=== PATIENT | female | born 1970 | race Caucasian/White ===

== ENCOUNTER 2017-09-21 09:54 | Inpatient (IN) ==
--- NOTE | 2017-09-20 08:50 | Discharge Summary ---
<LiviaCarol Maria Guadalupe - Last Filed: 09/20/17 08:47> Date of Encounter: 09/20/17 - Discharge Diagnosis (1) Status post total right knee replacement Priority: Primary Status: Acute (2) Arthritis of right knee Priority: Primary Status: Chronic (3) GERD (gastroesophageal reflux disease) Priority: Secondary Status: Chronic Qualifiers: Esophagitis presence: esophagitis presence not specified Qualified Code(s) : K21.9 - Gastro-esophageal reflux disease without esophagitis (4) Obesity Priority: Secondary Status: Chronic Qualifiers: Obesity type: unspecified obesity type Obesity classification: unspecified obesity classification Serious obesity comorbidity presence: unspecified whether serious comorbidity present Qualified Code(s): E66.9 - Obesity, unspecified - Hospital Course Hospital course: Ms. Salazar is a 47 year old female - Time Spent with Patient Total time spent providing and/or coordinating discharge services: - Discharge Medications Home Medications: Omeprazole 20 mg PO DAILY 08/20/16 [History] Aspirin Enteric Coated [Aspirin EC] 325 mg PO BID 10 Days #20 tablet. [Rx] Ondansetron HCl [Zofran] 4 mg PO Q8HR PRN 10 Days #30 tab 09/20/17 [Rx] OxyCODONE Immed Rel [Roxicodone 5 MG] 5 mg PO Q6HR PRN 7 Days #28 tablet [Rx] HYDROcodone/Acet 5/325 mg [[place] 5-325 mg] 1 tab PO TID PRN 09/21/17 [History] PredniSONE [Deltasone] See Taper PO TAPER 09/21/17 [History] Allergies/Adverse Reactions: 3 Allergy/AdvReac Type Severity Reaction Status Date / Time amitriptyline Allergy Vomiting Verified 09/21/17 10:18 sumatriptan [From Imitrex] Allergy Dizziness Verified 09/21/17 10:18 tramadol Allergy Dizziness Verified 09/21/17 10:18 aspirin [ASA] AdvReac Vomiting Verified 09/21/17 10:18 codeine AdvReac Vomiting Verified 09/21/17 10:18 Primary care physician: Carlos Soria MD - Patient Status Disposition: Home, Self-Care Condition: Good - Discharge Instructions Follow Up With: Carlos Soria MD [Primary Care Provider] - <Miller Alvarez - Last Filed: 09/22/17 06:24> Orders not resulted at time of discharge: Pending orders 09/21/17 01:00 XR knee RT limited 1-2V [XR] Routine Hemoglobin and Hematocrit [HEME] Routine 09/21/17 10:55 US anesthesia pain block [US] Routine Date of Encounter: 09/22/17 Time of Encounter: 06:23 - Discharge Diagnosis (1) Obesity (BMI 35.0-39.9 without comorbidity) Priority: Secondary Status: Chronic (2) Status post total right knee replacement Priority: Primary Status: Acute (3) Arthritis of right knee Priority: Primary Status: Chronic (4) GERD (gastroesophageal reflux disease) Priority: Secondary Status: Chronic Qualifiers: Esophagitis presence: esophagitis presence not specified Qualified Code(s) : K21.9 - Gastro-esophageal reflux disease without esophagitis - Hospital Course Hospital course: Ms. Salazar is a 47 year old female Status post right total knee replacement The patient had an uneventful postoperative course. They received antibiotics and physical therapy and were discharged in stable condition. There will follow -up in the office in 2 weeks. - Time Spent with Patient Total time spent providing and/or coordinating discharge services: Primary care physician: Carlos Soria MD - Patient Status Functional capacity at discharge: uses cane/walker Overall status at discharge: patient is progressing back to baseline
[2017-09-21] MEDS ORDERED: CeFAZolin Syr 3,000MG/30 ML 3,000 MG/30 ML SYRINGE IVPB ONE (10:16)
[2017-09-21] MEDS: Ringers Solution, Lactated 1,000 ML IVC SCH ×2 (10:44→15:23)
[2017-09-21] MEDS ORDERED: Famotidine 20 MG/2 ML VIAL IVP ONE (10:55)
[2017-09-21] MEDS ORDERED: Gabapentin 300 MG CAPSULE PO ONE (10:55)
--- NOTE | 2017-09-21 10:59 | Anesthesia Evaluation PreOp ---
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 [Rx] Ondansetron HCl [Zofran] 4 mg PO Q8HR PRN 10 Days #30 tab 09/20/17 [Rx] OxyCODONE Immed Rel [Roxicodone 5 MG] 5 mg PO Q6HR PRN 7 Days #28 tablet [Rx] HYDROcodone/Acet 5/325 mg [[place] 5-325 mg] 1 tab PO TID PRN 09/21/17 [History] PredniSONE [Deltasone] See Taper PO TAPER 09/21/17 [History] 3 Allergy/AdvReac Type Severity Reaction Status Date / Time amitriptyline Allergy Vomiting Verified 09/21/17 10:18 sumatriptan [From Imitrex] Allergy Dizziness Verified 09/21/17 10:18 tramadol Allergy Dizziness Verified 09/21/17 10:18 aspirin [ASA] AdvReac Vomiting Verified 09/21/17 10:18 codeine AdvReac Vomiting Verified 09/21/17 10:18 - Meds/Allergy Pre-op Review Medications Reviewed: Yes Allergies Reviewed: Yes Beta Blockers on Current Med List: No Anesthesia Results - Labs Laboratory Tests 08/20/16 08/26/17 08/26/17 13:17 10:18 10:18 Hgb 13.5 POC Hgb 13.0 Plt Count 195 Sodium 138 Potassium 3.6 BUN 19 Creatinine 0.65 - Imaging EKG: report reviewed (SR) Anesthesia Exam O2 Sat Height 1.75 m Height 1.75 m Weight 121.109 kg Weight 121.109 kg O2 Sat by Pulse Oximetry 98 Vital Signs Temp Pulse Resp BP Pulse Ox 97.7 F 63 18 127/73 98 09/21/17 10:15 09/21/17 10:15 09/21/17 10:15 09/21/17 10:15 09/21/17 10:15 Height: 5'9 Weight: 267 lbs NPO (# of Hours): MN Pain Scale: 0 - HEENT Pupil (Motor): Pupils equal, EOMI Mallampati: II Teeth: Normal Oral Opening: Greater than 3 - FORMULATION CHEMIST LOC: Oriented FORMULATION CHEMIST Motor: Normal RUE, Normal LUE, Normal RLE, Normal LLE, Normal Face FORMULATION CHEMIST Sensory: Normal: RUE, LUE, RLE, LLE, Face - Cardiac Rhythm: Regular Murmur: None JVD: No Carotid Bruit: No - Pulmonary Breath Sounds: bilateral Clear Respiratory Effort: Symmetrical Anesthesia Assess/Plan ASA Score: 2 Modified Jay Scale for Level of Consciousness: Cooperative, oriented, and tranquil Anesthetic Plan: Regional, MAC Monitoring Plan: Standard Monitors Recovery Plan: PACU (Discussed SAB with MAC, possible GA, agrees to proceed)
[2017-09-21] MEDS ORDERED: *HR* HYDROmorphone (PF) 1 MG/ML SYRINGE IVP PRN (11:49)
[2017-09-21] MEDS ORDERED: *HR* Promethazine 25 MG/ML VIAL IVP PRN (11:49)
[2017-09-21] MEDS ORDERED: Lidocaine -MPF 4% 5 ML AMPUL ONE (12:05)
[2017-09-21] MEDS ORDERED: *HR* Succinylcholine 200 MG/10 ML VIAL IVP ONE (12:05)
[2017-09-21] MEDS ORDERED: *HR* FentaNYL (PF) 100 MCG/2 ML VIAL ONE (12:05)
[2017-09-21] MEDS ORDERED: Lidocaine -MPF 2% 2 ML VIAL ONE (12:05)
[2017-09-21] MEDS ORDERED: Ondansetron 4 MG/2 ML VIAL ONE (12:05)
[2017-09-21] MEDS ORDERED: Dexamethasone 4 MG/ML VIAL ONE (12:05)
[2017-09-21] MEDS ORDERED: *HR* Midazolam HCl 2 MG/2 ML VIAL ONE (12:06)
[2017-09-21] MEDS ORDERED: *HR* Propofol 200 MG/20 ML VIAL IVP ONE (12:06)
--- NOTE | 2017-09-21 12:36 | History & Physical Report ---
Date of Encounter: 09/21/17 Time of Encounter: 12:36 24 Hour HP Update - Instructions Instructions: If the History and Physical is less than 30 days old and was completed prior to A.M. admission and or procedure and has NOT been updated on calendar day of procedure please complete this update prior to performing procedure. - Update Patient reports changes in Medical Condition: No Changes in examination, assessment, or condition: No Changes in Medication: No Preop tests/diagnostics Reviewed: Yes Surgery Remains Indicated: Yes Consent for Planned Operative Procedure(s) Verified: Yes - Pre-Operative Checklist Preoperative Checklist Indicated: No Prophylactic Antibiotic Ordered: Yes Is VTE Prophylaxis Indicated?: Yes
[2017-09-21] MEDS ORDERED: ROPIVACAINE HCL/PF 0.5% 30 ML VIAL ONE (12:45)
[2017-09-21] MEDS ORDERED: Ethanol\\Acetic Acid\\Na Ace\\Ben 1,000 ML IRRIG.SOLN IR ONE (13:11)
--- NOTE | 2017-09-21 13:37 | Anesthesia Procedures ---
Date of Encounter: 09/21/17 Time of Encounter: 13:00 Procedures: Anesthesia - Epidural/Spinal Patient ID/Chart reviewed: Yes Patient examined: Yes Supplemental Oxygen: Nasal Cannula Supplemental Oxygen Rate (L/min): 2 Sedation: Versed (mg): 2 Sedation: Fentanyl (mcg): 100 Site Prep: Aseptic Technique, Sterile prep and drape, Povidone-Iodine 1% Patient position: upright Local Anesthetic: Lidocaine 1% Amount of Local Anesthetic used: 3 Interspace Used: L4-L5 Blood: No CSF: Yes Paresthesia: No Spinal Needle Gauge: 22 Spinal Dose: 2.5ml Bupivicaine 0.5% isobaric Procedure: Intrathecal dose administered 2nd pass, 1st pass failure with 25G Sprotte, 2nd pass 22G quincke. Sitting position for spinal. VSS throughout Vitals + FHT's: Vital Signs Temperature 97.7 F 09/21/17 10:15 Pulse Rate 63 09/21/17 10:15 Respiratory Rate 18 09/21/17 10:15 Blood Pressure 127/73 09/21/17 10:15 O2 Sat by Pulse Oximetry 98 09/21/17 10:15 Temperature 97.7 F 09/21/17 10:15 Pulse Rate 65 09/21/17 13:27 Respiratory Rate 16 09/21/17 13:27 Blood Pressure 111/67 09/21/17 13:27 O2 Sat by Pulse Oximetry 98 09/21/17 13:27 - Nerve Block Procedure Date: 09/21/17 Time: 13:20 Allergies/Adv Reactions: amitryptyline, sumatriptan, tramadol, Aspirin, Codeine Pre-op Diagnosis: Right knee arthritis Surgical Procedure: Right TKA Checklist: Correct Patient Identifier, Correct procedure, History checked Correct side: Right Blood Thinner: No Monitor Applied: EKG, BP, Pulse Oximetry Supplemental Oxygen via Nasal Cannula (L/min): 2 Indication: Post Op Analgesia Pre-op Neuro Deficits: No Block Type: Other (adductor Canal Right) Catheter placed: No Sterile Technique: Yes Ultrasound used: Yes Anatomy identified: Yes Visual spread of Local: Yes Neuro Stimulation: No Blood on Needle Aspiration: No Smooth Injection of Local: Yes Pain with Injection of Local: No Prep: Chlorhexadine Needle: 21 x 100 mm Stimuplex Local: Ropivacaine, Other (Decadron 8mg, Precedex 20mcg) Volume (cc): 37ml Number of Attempts: 1 Complications: None/effective block Vitals: Vital Signs Temperature 97.7 F 09/21/17 10:15 Pulse Rate 63 09/21/17 10:15 Respiratory Rate 18 09/21/17 10:15 Blood Pressure 127/73 09/21/17 10:15 O2 Sat by Pulse Oximetry 98 09/21/17 10:15 Temperature 97.7 F 09/21/17 10:15 Pulse Rate 65 09/21/17 13:27 Respiratory Rate 16 09/21/17 13:27 Blood Pressure 111/67 09/21/17 13:27 O2 Sat by Pulse Oximetry 98 09/21/17 13:27
[2017-09-21] MEDS ORDERED: Propofol 500 MG/50 ML INFUS..BTL ONE ×2 (14:07→14:23)
--- NOTE | 2017-09-21 14:35 | Orthopedic Operative Note ---
Date of procedure: 09/21/17 Pre-op diagnosis: Right knee arthritis Post-op diagnosis: same Procedure: Procedure: Right robotic-assisted Total knee replacement Estimated blood loss: 200 cc Hardware: Metal and polyethylene replacement. [place] Femur: 3 Tibia: 4 TS insert: 13 Patella: 36 Exam Under anesthesia: 6 degrees flexion contracture 5 degree varus as calculated by the robot full flexion and no instability Procedural Notes: A 4 arthritic changes all 3 compartments Operative procedure: The patient was brought to the operating room and placed on the operating room table. After general anesthesia was administered the operative knee was examined. Findings were noted in the exam under anesthesia. The operative extremity was prepped and draped in sterile surgical fashion. The patient received IV antibiotics prior to skin incision. A standard midline incision was made centered over the patella. The incision was made through the skin and subcutaneous tissue. A medial parapatellar tendon approach was performed. Care was taken to preserve tissue along the medial aspect of the patella. And to protect the patella tendon. The deep MCL was released off the medial tibia. The infra patella fat pad was excised. The patella was everted and cut was made at the level of the insertion of the quadriceps and patella tendon. The patella was sized to 36 the guide was seated and the lug holes are drilled. Knee was brought into flexion. Patient noted to have grade 4 arthritic changes all 3 compartments. Steinmann pins were placed in the tibia and the femur for the tibial and femoral arrays respectively. Checkpoints were also placed in the tibia and the femur for calculation purposes. The knee including the femur and the tibial registered. Osteophytes, ACL and PCL were excised at this point. Extension and flexion were assessed with a valgus stress components were adjusted on the computer to balance the knee. Femoral cuts were made first with robotic assistance, these included the anterior cut posterior cuts chamfer cuts. Tibial cut was then performed with robotic assistance as well. Bone fragments were removed, as well as the medial and lateral meniscus. The size 3 femoral guide was seated box cut was made lug holes are drilled. The size 4 tibial tray was seated and prepared with the fin cutter. Trial reduction with the 13 TS Geraldine revealed extension of 0 degree and 3 degree varus full flexion. No varus valgus instability. Trial reduction revealed excellent patella tracking. All trial components were removed all bony surfaces were irrigated. The Tibia was seated followed by the femur, The Geraldine size 13 was seated and secured patella. Patient had similar findings for motion and stability. The knee was closed by the PA. The knee was then irrigated out with 2 L of pulse irrigation. The extensor mechanism was closed with #2 FiberWire suture and #2 PDS suture. The subcutaneous tissue was then irrigated and closed deep with #1 PDS suture superficially with 0 PDS suture and skin was closed with zip tie The patient was then placed in a sterile dressing and a postoperative brace extubated and transferred to recovery room in stable condition. Anesthesia: spinal Surgeon: Miller Alvarez Was there an medical assistant instructor present: No Estimated blood loss (cc): 200 Condition: stable Disposition: PACU
--- NOTE | 2017-09-21 15:32 | Anesthesia Evaluation Post Op ---
Date of Encounter: 09/21/17 Time of Encounter: 15:40 - Vital Signs Vital Signs: Vital Signs/O2 Sat/Glucose, Most Current Temp Pulse Resp BP Pulse Ox 09/21/17 15:23 63 12 92/65 98 09/21/17 15:13 69 12 99/75 95 09/21/17 15:03 97.5 F L 68 12 116/62 100 09/21/17 13:27 65 16 111/67 98 09/21/17 13:24 63 16 108/57 97 09/21/17 13:21 64 16 103/78 98 09/21/17 13:18 69 16 113/64 98 09/21/17 13:15 67 18 129/117 98 09/21/17 13:10 67 18 153/96 96 09/21/17 13:04 66 18 128/78 98 - Lungs Lungs: Clear Ascult./Percussion - Airway Airway: Non-obstructed - Cardiovascular Regular Rate - Mental Status Mental Status: Alert & Oriented, Answers Appropriately - Pain Pain Scale: 0 - Nausea Vomiting Nausea Vomiting: Not Present - Hydration Hydration: Ice chips - Discharge PostOp Status: Transfer Patient to floor
[2017-09-21 15:35] LABS: Hematocrit 35.9 % (35.3-44.9); Hemoglobin 11.7 g/dL (11.5-15.4)
[2017-09-21] MEDS ORDERED: Sennosides 8.6 MG TABLET PO PRN (15:44)
[2017-09-21] MEDS ORDERED: *HR* OxyCODONE Immed Rel 5 MG TABLET PO PRN (15:44)
[2017-09-21] MEDS ORDERED: Naloxone 0.4 MG/ML INJ IVP PRN (15:44)
[2017-09-21] MEDS ORDERED: Temazepam 15 MG CAPSULE PO PRN (15:44)
[2017-09-21] MEDS ORDERED: Ringers Solution, Lactated 1,000 ML IVC SCH (15:44)
[2017-09-21] MEDS ORDERED: MOM Conc 10 ML UD.LIQ PO PRN (15:44)
[2017-09-21] MEDS: *HR* Enoxaparin 30 MG/0.3 ML SYRINGE SQ SCH (17:04)
[2017-09-21] MEDS ORDERED: *HR* Enoxaparin 30 MG/0.3 ML SYRINGE SQ SCH (18:00)
[2017-09-21] MEDS: Ondansetron 4 MG/2 ML VIAL IVP PRN ×2 (18:01→23:53)
[2017-09-21] MEDS: CeFAZolin Syr 3,000MG/30 ML 3,000 MG/30 ML SYRINGE IVPB SCH (20:24)
[2017-09-22 02:12] LABS: Hematocrit 38.3 % (35.3-44.9); Hemoglobin 12.3 g/dL (11.5-15.4)
[2017-09-22 02:26] LABS: BUN/Creatinine Ratio 30 (6-26); Blood Urea Nitrogen 18 mg/dL (6-20); Carbon Dioxide 29 mEq/L (23-29); Chloride 103 mEq/L (98-107); Glucose 146 mg/dL (70-105); Osmolality,Calculated 293 (280-300); Potassium 4.4 mEq/L (3.5-5.1); Sodium 139 mEq/L (136-145); eGFR For African Americans > 60 (> 60); eGFR For Non-African Americans > 60 (> 60)
[2017-09-22] MEDS: CeFAZolin Syr 3,000MG/30 ML 3,000 MG/30 ML SYRINGE IVPB SCH (04:34)
[2017-09-22] MEDS: *HR* Enoxaparin 30 MG/0.3 ML SYRINGE SQ SCH ×2 (04:35→18:29)
--- NOTE | 2017-09-22 06:24 | Orthopedics Progress Note ---
Date of Encounter: 09/22/17 Time of Encounter: 06:24 - Assessment and Plan (1) Obesity (BMI 35.0-39.9 without comorbidity) Current Visit: Yes Status: Chronic (2) Status post total right knee replacement Current Visit: No Status: Acute (3) Arthritis of right knee Current Visit: No Status: Chronic (4) GERD (gastroesophageal reflux disease) Current Visit: No Status: Chronic Qualifiers: Esophagitis presence: esophagitis presence not specified Qualified Code(s) : K21.9 - Gastro-esophageal reflux disease without esophagitis Subjective Interval history: Patient was seen this morning doing well without complaints. Afebrile vital signs stable. Operative extremity: Neurovascularly intact Dressing clean dry and intact Calves nontender Assessment and plan: Continue with postoperative care Hematocrit 38 discharged today Objective Vital signs: Vital Signs Temp Pulse Resp BP Pulse Ox 09/22/17 04:01 97.6 F 58 17 100/67 97 09/22/17 00:16 97.8 F 53 16 136/89 95 09/21/17 18:11 97.2 F L 55 16 105/62 96 09/21/17 17:02 97.0 F L 54 16 105/63 98 09/21/17 16:22 97.0 F L 53 14 98/65 97 09/21/17 15:47 96.7 F L 57 16 106/64 95 09/21/17 15:33 97.8 F 63 14 111/64 93 09/21/17 15:23 63 12 92/65 98 09/21/17 15:13 69 12 99/75 95 09/21/17 15:03 97.5 F L 68 12 116/62 100 09/21/17 13:27 65 16 111/67 98 09/21/17 13:24 63 16 108/57 97 09/21/17 13:21 64 16 103/78 98 09/21/17 13:18 69 16 113/64 98 09/21/17 13:15 67 18 129/117 98 09/21/17 13:10 67 18 153/96 96 09/21/17 13:04 66 18 128/78 98 09/21/17 10:15 97.7 F 63 18 127/73 98 Intake and Output 09/21/17 09/21/17 09/22/17 15:59 23:59 07:59 Intake Total 1000 / 1000 80 / 80 80 / 80 Output Total 200 / 200 150 / 150 500 / 500 Balance 800 / 800 -70 / -70 -420 / -420 Intake: IV Fluids 1000 / 1000 30 / 30 30 / 30 Lactated Ringers 1,000 ML @ 25 1000 / 1000 mls/hr IVC .Q24H VICENTE Rx#: [id number] Ancef Syringe 3,000 MG/30 ML 3, 30 / 30 30 / 30 000 mg In 30 ml @ 200 mls/hr IVPB Q8H VICENTE Rx#:[id number] Oral 50 / 50 50 / 50 Output: Emesis 150 / 150 100 / 100 Estimated Blood Loss 200 / 200 Straight Cath 400 / 400 Other: Weight 121.109 kg Blood Glucose* 219 - Labs CBC & BMP: 09/22/17 01:47 09/22/17 01:47 Labs: Abnormal lab results BUN/Creatinine Ratio 30 (6-26) H 09/22/17 01:47 Glucose 146 mg/dL (70-105) H 09/22/17 01:47 - VTE Documentation of Mechanical Device: Venous foot pump, device Consult Discharge Plan - Plan Referrals: Carlos Soria MD [Primary Care Provider] -
[2017-09-22] MEDS: *HR* OxyCODONE/APAP 5/325 TABLET PO PRN ×3 (09:59→20:04)
[2017-09-23 01:21] LABS: Hematocrit 32.9 % (35.3-44.9); Hemoglobin 10.8 g/dL (11.5-15.4)
[2017-09-23 01:40] LABS: BUN/Creatinine Ratio 25 (6-26); Blood Urea Nitrogen 15 mg/dL (6-20); Calcium 8.7 mg/dL (8.6-10.3); Carbon Dioxide 29 mEq/L (23-29); Chloride 103 mEq/L (98-107); Glucose 115 mg/dL (70-105); Osmolality,Calculated 286 (280-300); Potassium 3.5 mEq/L (3.5-5.1); Sodium 137 mEq/L (136-145); eGFR For African Americans > 60 (> 60); eGFR For Non-African Americans > 60 (> 60)
[2017-09-23] MEDS: *HR* Enoxaparin 30 MG/0.3 ML SYRINGE SQ SCH (04:53)
[2017-09-23] MEDS: *HR* OxyCODONE/APAP 5/325 TABLET PO PRN ×2 (04:53→08:49)
[2017-09-23 06:40] VITALS: BP 121/67
--- NOTE | 2017-09-23 08:57 | Orthopedics Progress Note ---
Date of Encounter: 09/23/17 Time of Encounter: 08:56 - Assessment and Plan (1) Obesity (BMI 35.0-39.9 without comorbidity) Current Visit: Yes Status: Chronic (2) Status post total right knee replacement Current Visit: No Status: Acute (3) Arthritis of right knee Current Visit: No Status: Chronic (4) GERD (gastroesophageal reflux disease) Current Visit: No Status: Chronic Qualifiers: Esophagitis presence: esophagitis presence not specified Qualified Code(s) : K21.9 - Gastro-esophageal reflux disease without esophagitis Subjective Interval history: Patient was seen this morning doing well without complaints. Afebrile vital signs stable. Operative extremity: Neurovascularly intact Dressing clean dry and intact Calves nontender Assessment and plan: Continue with postoperative care discharged today Objective Vital signs: Vital Signs Temp Pulse Resp BP Pulse Ox 09/23/17 06:37 99.4 F 79 18 121/67 94 09/23/17 05:05 99.8 F H 78 16 112/72 97 09/22/17 23:45 99.3 F 85 16 92/53 98 09/22/17 19:38 98.6 F 76 18 117/79 100 09/22/17 14:47 97.6 F 63 18 111/72 98 09/22/17 10:46 97.8 F 60 18 102/55 98 Intake and Output 09/22/17 09/23/17 09/23/17 23:59 07:59 15:59 Intake Total 50 / 50 200 / 200 Output Total 350 / 350 Balance 50 / 50 -150 / -150 Intake: Oral 50 / 50 200 / 200 Output: Urine 350 / 350 Other: # Voids 1 - Labs CBC & BMP: 09/23/17 01:01 09/23/17 01:01 Labs: Abnormal lab results Hgb 10.8 g/dL (11.5-15.4) L D 09/23/17 01:01 Hct 32.9 % (35.3-44.9) L 09/23/17 01:01 Creatinine 0.59 mg/dL (0.60-1.20) L 09/23/17 01:01 Glucose 115 mg/dL (70-105) H 09/23/17 01:01 - VTE Documentation of Mechanical Device: Venous foot pump, device Consult Discharge Plan - Plan Additional Instructions: Discharge Instructions: Total Knee Replacement Please call [facility] ([phone]), your Primary Care Physician, or report to the Emergency Room if you have any of the following symptoms: Nausea, vomiting, fever greater that 101.5, swelling, chest pain, shortness of breath, increased pain/redness/drainage/odor for your incision site, numbness/ tingling, or any other concerning symptoms. ACTIVITY:Weight-bearing as tolerated. You may progress off support (crutches or walker) as tolerated. MEDICATIONS: Upon discharge resume your home medications. Take all the medications as prescribed. Take a stool softener if taking narcotic pain medications. Stool softeners are only effective if you drink enough fluids. Drink 6-8 glass of water or fluids a day, unless this is not allowed for another health problem. Despite using stool softeners, if you haven't had a bowel movement in 3 days, please switch to a gentle laxative. Gentle laxatives are sold over the counter. You should have a bowel movement within 24 hours, if not call the office. You will be discharged from the hospital with a prescription for pain medication. You are encouraged to decrease the use of narcotic pain medication as tolerated. Should you require a refill, please call the office. [facility] prescribes narcotic pain medication for only 4-6 weeks after surgery. If you require pain medication beyond this time period, you may be referred to your Primary Care Physician or to the Pain Clinic for further evaluation. Plan ahead for refills on pain medication as many narcotics either need to be picked up at the office or mailed. It is best to call 48-72 hours in advance of needing a prescription refill so you don't run out of medication. To help control the post-operative pain, you may take NSAIDs (Aleve,Advil, Motrin, Ibuprofen, Naprosyn) or Tylenol as prescribed on the bottle in addition to the pain medication. ANTICOAGULATION (blood thinners): Continue your Aspirin, Lovenox or Coumadin as prescribed to help prevent a blood clot in the leg or in the lungs. As long as your incision remains dry and you tolerate the NSAIDs (Aleve, Advil, Motrin, ibuprofen, naprosyn), it is OK to use the NSAIDS while you are taking your anticoagulation medication. Should your incision start to drain, stop the NSAID and contact our office. Common symptoms of blood clot in the legs include: localized pain, swelling, calf tenderness, redness or discoloration of the skin. Blood clot in the lung symptoms include: shortness of breath, rapid pulse, sweating, and chest pain that worsens with deep breathing, coughing up blood, lightheadedness, feelings of anxiety. If you experience any of these symptoms notify your physician immediately, go to the emergency room, or if having trouble breathing, call 911. WOUND CARE: Leave the dressing on for 7 to 10days. You may change the dressing if it becomes saturated greater than 50%. Do not get the dressing wet at anytime. Wash your hands with antibacterial soap, rinse and dry prior to any wound care. If you have jose luis the visiting nurse or rehab facility can remove the stapes 10-14 days after surgery and place steri-strips across the wound. Leave the steri-strips in place until they fall off on their won. You may let water from the shower run on top of the steri-strips. If you do not have a visiting nurse or rehab facility, you will need to return to the office at 10-14 days for the jose luis to be removed. If you have itching or redness around the dressing call the office. FOLLOW-UP: Please follow up with your surgeon in the orthopedic clinic in 4 weeks from the day of surgery. If you have jose luis that need to be removed, you will need to come back to the office in 10-14 days from the day of surgery. Referrals: Carlos Soria MD [Primary Care Provider] -
--- NOTE | 2017-09-23 16:53 | Physician Discharge Referral ---
Home Health/Hosp Referral Info Transfer to: Home Health Attending Provider: Provider in Charge Post Discharge: PCP - Diagnosis (1) Status post total right knee replacement Status: Acute (2) Arthritis of right knee Status: Chronic (3) GERD (gastroesophageal reflux disease) Status: Chronic (4) Obesity Status: Chronic - Respiratory Orders None Smoking Cessation: Smoking cessation has been advised. For more information, call the [employer] Tobacco Quit Line at 6-870-ZRAU-NOW. - Diet/Nutrition Diet/Nutrition Orders: Regular - Activity Activity Orders: Up ad jonathan, Ambulate, Chair, Walker - Services Needed Following services are medically necessary services: Nursing, Home Health Aide, Physical Therapy, Occupational Therapy Home Care Orders: right Knee: Opsite in place. Do not remove until first post-operative appointment, unless > 75% saturation. If saturated, remove dressing and replace with appropriate dressing. Martin and Zipline dressing in place, not to be removed. Continue with ICE and frequent elevation. WBAT. Knee immobilizer at night until first post-operative appointment. Start PT/OT. Continue Incentive spirometer 10x/hour. f/up as scheduled. - Transfer Medications Home Medications: Omeprazole 20 mg PO DAILY 08/20/16 [History] Aspirin Enteric Coated [Aspirin EC] 325 mg PO BID 10 Days #20 tablet. [Rx] Ondansetron HCl [Zofran] 4 mg PO Q8HR PRN 10 Days #30 tab 09/20/17 [Rx] OxyCODONE Immed Rel [Roxicodone 5 MG] 5 mg PO Q6HR PRN 7 Days #28 tablet [Rx] HYDROcodone/Acet 5/325 mg [[place] 5-325 mg] 1 tab PO TID PRN 09/21/17 [History] PredniSONE [Deltasone] See Taper PO TAPER 09/21/17 [History] Allergies/Adverse Reactions: 3 Allergy/AdvReac Type Severity Reaction Status Date / Time amitriptyline Allergy Vomiting Verified 09/21/17 10:18 sumatriptan [From Imitrex] Allergy Dizziness Verified 09/21/17 10:18 tramadol Allergy Dizziness Verified 09/21/17 10:18 aspirin [ASA] AdvReac Vomiting Verified 09/21/17 10:18 codeine AdvReac Vomiting Verified 09/21/17 10:18 Certification: Further, I certify that my clinical findings support that this patient is homebound (i.e. absences from home require considerable and taxing effort and are for medical reasons or judaism services or infrequently or short duration when for other reasons) because: Homebound Reason: Post-surgery restriction and or conditions limit ability to leave home Attestation: My signature below is to certify that this patient is under my care and that I, or nurse practitioner, or a physician's spa assistant manager working with me, has a face-to -face encounter with this patient.
--- NOTE | 2017-09-24 07:48 | Event Note ---
Date of Encounter: 09/22/17 Time of Encounter: 12:00 Delayed entry PCR- POD#1 R TKR robotic 09/21/17 Antonio PCR - Patient seen at bedside. Labwork and medications reviewed. Pain control: Adequate Participating in PT. All questions and concerns addressed. Educated on use of incentive spirometer, ambulation, and hydration. Patient educated on post-operative restrictions and care. Addressed: see above. D/C plan: Discharge tomorrow with home health
--- NOTE | 2017-09-24 07:50 | Event Note ---
Date of Encounter: 09/23/17 Time of Encounter: 12:00 Delayed entry Patient states even with Zofran, not able to tolerate ASA therapy for clot prevention. Offered option of Xarelto, Eliquis, Lovenox based on cost/insurance coverage and patient preference. Xarelto rx sent to pharmacy for discharge.
== END 2017-09-23 11:31 | disposition home or self-care (01) | DRG 470 ==
LOC: SAMDAY 09:54 → 3NENU 15:42
PROVIDERS: ADMIT Orthopaedic Surgery; ATTEND Orthopaedic Surgery

== ENCOUNTER 2019-03-17 08:03 | Observation (INO) ==
[2019-03-17] MEDS ORDERED: Isovue-370 500 ML BOTTLE IVP ONE (08:25)
[2019-03-17] MEDS ORDERED: *HR* FentaNYL (PF) 100 MCG/2 ML VIAL IVP ONE ×2 (08:26→10:21)
[2019-03-17] MEDS ORDERED: Ondansetron 4 MG/2 ML VIAL IVP ONE (08:26)
[2019-03-17 08:53] LABS: Basophils % 0.2 %; Eosinophils # 0.1 K/mcL (0.0-0.6); Eosinophils % 1.8 %; Hematocrit 39.5 % (35.3-44.9); Hemoglobin 12.6 g/dL (11.5-15.4); Immature Granulocytes % 0.4 % (0-4); Lymphocytes # 1.8 K/mcL (0.6-4.6); Lymphocytes % 35.2 %; Mean Corpuscular HGB Conc 31.9 g/dL (31.6-35.5); Mean Corpuscular Hemoglobin 28.1 pg (28.0-33.3); Mean Corpuscular Volume 88.2 fL (83.0-100.0); Mean Platelet Volume 11.2 fL (9.4-12.4); Monocytes # 0.3 K/mcL (0.0-1.3); Monocytes % 5.3 %; Neutrophils # 2.9 K/mcL (1.6-8.9); Platelet Count 175 K/mcL (140-400); Red Blood Count 4.48 M/mcL (3.82-4.97); Red Cell Distribution Width 13.4 % (11.5-14.5); Segmented Neutrophils % 57.1 %; White Blood Count 5.1 K/mcL (4.3-11.1)
[2019-03-17 08:56] LABS: INR 0.8; Prothrombin Time 9.5 Seconds (9.4-12.1)
[2019-03-17 08:59] LABS: Activated Partial Thrombo Time 31.6 Seconds (26.0-36.0)
[2019-03-17 09:16] LABS: BUN/Creatinine Ratio 25 (6-26); Blood Urea Nitrogen 15 mg/dL (6-20); Calcium 9.6 mg/dL (8.6-10.3); Carbon Dioxide 27 mEq/L (23-29); Chloride 104 mEq/L (98-107); Glucose 100 mg/dL (70-105); Osmolality,Calculated 293 (280-300); Potassium 3.7 mEq/L (3.5-5.1); Sodium 141 mEq/L (136-145); Troponin I < 0.03 ng/mL (< 0.04); eGFR For African Americans > 60 (> 60); eGFR For Non-African Americans > 60 (> 60)
[2019-03-17] MEDS ORDERED: Naloxone 0.4 MG/ML INJ IVP PRN (10:53)
[2019-03-17] MEDS ORDERED: *HR* HYDROcodone/Acet 5/325 mg TABLET PO PRN (10:53)
[2019-03-17] MEDS ORDERED: NON-FORMULARY MEDICATION 1 EACH EACH (Diclofenac Sodium [Voltaren] 100 GM) TP PRN (10:55)
[2019-03-17] MEDS ORDERED: Perflutren Lipid Microsphere 1.3 ML in 0.9 % Sodium Chloride 8.7 ML IVP ONE (15:38)
[2019-03-17] MEDS: *HR* OxyCODONE Immed Rel 5 MG TABLET PO PRN ×2 (15:53→22:14)
[2019-03-17] MEDS: *HR* Heparin 5,000 UNIT/ML VIAL SQ SCH ×2 (15:53→21:06)
[2019-03-18 04:23] LABS: Hemoglobin 11.9 g/dL (11.5-15.4); Mean Corpuscular HGB Conc 32.2 g/dL (31.6-35.5); Mean Corpuscular Hemoglobin 28.5 pg (28.0-33.3); Mean Corpuscular Volume 88.7 fL (83.0-100.0); Platelet Count 163 K/mcL (140-400); Red Blood Count 4.17 M/mcL (3.82-4.97); Red Cell Distribution Width 13.5 % (11.5-14.5); White Blood Count 4.2 K/mcL (4.3-11.1)
[2019-03-18 04:42] LABS: BUN/Creatinine Ratio 19 (6-26); Blood Urea Nitrogen 12 mg/dL (6-20); Calcium 9.2 mg/dL (8.6-10.3); Carbon Dioxide 29 mEq/L (23-29); Chloride 105 mEq/L (98-107); Chol/HDL Ratio 4.3 (0-4.9); Cholesterol 167 mg/dL (< 200); Glucose 100 mg/dL (70-105); HDL Cholesterol 39 mg/dL (40-59); LDL Cholesterol,Calculated 99 mg/dL (0-99); Osmolality,Calculated 290 (280-300); Potassium 3.8 mEq/L (3.5-5.1); Sodium 140 mEq/L (136-145); Triglycerides 144 mg/dL (< 150); eGFR For African Americans > 60 (> 60); eGFR For Non-African Americans > 60 (> 60)
[2019-03-18] MEDS: *HR* Heparin 5,000 UNIT/ML VIAL SQ SCH ×3 (07:31→19:37)
[2019-03-18] MEDS: Acetaminophen 325 MG TABLET PO PRN (19:44)
[2019-03-19] MEDS: *HR* Heparin 5,000 UNIT/ML VIAL SQ SCH ×3 (05:21→21:19)
[2019-03-20] MEDS: *HR* Heparin 5,000 UNIT/ML VIAL SQ SCH ×3 (06:21→20:37)
[2019-03-20] MEDS: Acetaminophen 325 MG TABLET PO PRN ×2 (09:34→18:23)
[2019-03-20 13:17] LABS: Basophils % 0.4 %; Eosinophils # 0.1 K/mcL (0.0-0.6); Eosinophils % 1.5 %; Hematocrit 42.4 % (35.3-44.9); Hemoglobin 13.4 g/dL (11.5-15.4); Immature Granulocytes % 0.4 % (0-4); Lymphocytes # 2.1 K/mcL (0.6-4.6); Lymphocytes % 38.4 %; Mean Corpuscular HGB Conc 31.6 g/dL (31.6-35.5); Mean Corpuscular Hemoglobin 27.6 pg (28.0-33.3); Mean Corpuscular Volume 87.4 fL (83.0-100.0); Mean Platelet Volume 11.3 fL (9.4-12.4); Monocytes # 0.3 K/mcL (0.0-1.3); Monocytes % 6.2 %; Neutrophils # 2.9 K/mcL (1.6-8.9); Platelet Count 201 K/mcL (140-400); Red Blood Count 4.85 M/mcL (3.82-4.97); Red Cell Distribution Width 13.4 % (11.5-14.5); Segmented Neutrophils % 53.1 %; White Blood Count 5.5 K/mcL (4.3-11.1)
[2019-03-20 13:27] LABS: BUN/Creatinine Ratio 29 (6-26); Blood Urea Nitrogen 22 mg/dL (6-20); Calcium 9.9 mg/dL (8.6-10.3); Carbon Dioxide 28 mEq/L (23-29); Chloride 104 mEq/L (98-107); Glucose 84 mg/dL (70-105); Osmolality,Calculated 287 (280-300); Sodium 137 mEq/L (136-145); eGFR For African Americans > 60 (> 60); eGFR For Non-African Americans > 60 (> 60)
[2019-03-21] MEDS: *HR* Heparin 5,000 UNIT/ML VIAL SQ SCH ×2 (05:52→15:39)
[2019-03-21] MEDS ORDERED: Regadenoson 0.4 MG/5 ML SYRINGE IVP ONE (06:09)
[2019-03-21] MEDS ORDERED: Metoprolol XL (24 HR) Succ 25 MG TAB.ER.24H PO SCH (15:43)
[2019-03-21 17:03] VITALS: BP 138/83
== END 2019-03-21 18:33 | disposition home or self-care (01) ==
LOC: EMEROOARM 08:03 → 3BNU 08:03
PROVIDERS: ADMIT Internal Medicine; ATTEND Internal Medicine

== ENCOUNTER 2020-03-06 06:21 | Observation (INO) ==
[2020-03-06] MEDS ORDERED: Acetaminophen IV 1,000 MG/100 ML INFUS..BTL IVPB ONE (06:28)
[2020-03-06] MEDS ORDERED: Famotidine 20 MG/2 ML VIAL IVP ONE (06:28)
[2020-03-06] MEDS ORDERED: *HR* Methadone 5 MG TABLET PO ONE (06:29)
[2020-03-06] MEDS ORDERED: CeFAZolin Syr 2,000MG/20 ML 2,000 MG/20 ML SYRINGE IVPB ONE (06:45)
[2020-03-06] MEDS ORDERED: Ondansetron 4 MG/2 ML VIAL IVP PRN (07:12)
[2020-03-06] MEDS ORDERED: *HR* Promethazine 25 MG/ML VIAL IVP PRN ×2 (07:12→16:16)
[2020-03-06] MEDS ORDERED: *HR* Midazolam HCl 2 MG/2 ML VIAL ONE (07:13)
[2020-03-06] MEDS ORDERED: Lidocaine HCL 4 ML Topical Solution (Laryng-O-Jet Kit Sterile Pak) TP ONE (07:13)
[2020-03-06] MEDS ORDERED: Lidocaine -MPF 2% 2 ML VIAL ONE (07:13)
[2020-03-06] MEDS ORDERED: *HR* Rocuronium Bromide 50 MG/5 ML VIAL ONE (07:13)
[2020-03-06] MEDS ORDERED: *HR* Propofol 200 MG/20 ML VIAL IVP ONE (07:13)
[2020-03-06] MEDS ORDERED: Dexamethasone 4 MG/ML VIAL ONE (07:13)
[2020-03-06] MEDS ORDERED: *HR* Succinylcholine 200 MG/10 ML VIAL IVP ONE (07:13)
[2020-03-06] MEDS ORDERED: *HR* Remifentanil 1 MG VIAL IVP ONE (07:15)
[2020-03-06] MEDS: Ringers Solution, Lactated 1,000 ML IVC SCH ×3 (07:24→15:54)
[2020-03-06] MEDS ORDERED: Bacitracin 50,000 UNIT, Polymyxin B Sulfate 500,000 UNIT, Sodium Chloride IRRigation 1,... IR ONE (07:45)
[2020-03-06] MEDS ORDERED: *HR* FentaNYL (PF) 100 MCG/2 ML VIAL ONE (09:14)
[2020-03-06] MEDS ORDERED: EPHEDrine 50 MG/ML VIAL ONE (10:24)
[2020-03-06] MEDS: *HR* HYDROmorphone PF 0.5 MG/0.5 ML SYRINGE IVP PRN ×4 (12:20→13:10)
[2020-03-06] MEDS ORDERED: Naloxone 0.4 MG/ML INJ IVP PRN (14:02)
[2020-03-06] MEDS ORDERED: Acetaminophen 325 MG TABLET PO PRN (14:02)
[2020-03-06] MEDS: Ondansetron 4 MG/2 ML VIAL IVP PRN (15:53)
[2020-03-06] MEDS: CeFAZolin 2 GM/120 ML BAG IVPB SCH ×2 (18:19→23:17)
[2020-03-06] MEDS: *HR* HYDROcodone/Acet 5/325 mg TABLET PO PRN (20:11)
[2020-03-06] MEDS: *HR* OxyCODONE Immed Rel 5 MG TABLET PO PRN (23:45)
[2020-03-07] MEDS: Ringers Solution, Lactated 1,000 ML IVC SCH ×2 (02:23→12:48)
[2020-03-07] MEDS: Ondansetron 4 MG/2 ML VIAL IVP PRN (07:33)
[2020-03-07] MEDS: *HR* OxyCODONE Immed Rel 5 MG TABLET PO PRN ×3 (07:33→20:27)
[2020-03-07] MEDS: Multivit/Ca/Min/Fe/FA 1 TAB TABLET PO SCH (07:39)
[2020-03-08] MEDS: *HR* OxyCODONE Immed Rel 5 MG TABLET PO PRN ×3 (03:55→20:37)
[2020-03-08] MEDS: Multivit/Ca/Min/Fe/FA 1 TAB TABLET PO SCH (07:45)
[2020-03-09] MEDS: Multivit/Ca/Min/Fe/FA 1 TAB TABLET PO SCH (09:56)
[2020-03-09] MEDS: *HR* HYDROcodone/Acet 5/325 mg TABLET PO PRN (09:56)
[2020-03-09 11:06] VITALS: BP 117/82
== END 2020-03-09 13:30 | disposition home health service (06) ==
LOC: 3NENU 06:21 → SAMDAY 06:21 → EDSDCBED 07:00 → 3NENU 14:00 → SAMDAY 03-09 13:30 → UNDODEPSDC 03-10 08:00
PROVIDERS: ADMIT Orthopaedic Surgery Orthopaedic Surgery of the Spine; ATTEND Orthopaedic Surgery Orthopaedic Surgery of the Spine